=== PATIENT | male | born 1990 | race Caucasian/White ===

== ENCOUNTER 2021-01-15 09:15 | Emergency (ER) | payer OTHER ==
[~2021-01-15] VITALS: Ht 177.8 cm; Wt 113.4 kg
[2021-01-15] MEDS ORDERED: MULTI-VITAMIN1 EAC2 PO (09:35)
[2021-01-15] MEDS ORDERED: FOLIKA-NC TABL1 EACH PO (09:36)
[2021-01-15] MEDS ORDERED: AMOCLA875 PO (10:05)
[2021-01-15] MEDS ORDERED: Norco 5-325 Ta1 EACH PO (10:05)
== END 2021-01-15 10:17 | disposition home or self-care (01) ==
LOC: ER 09:15
DX: L05.91 Pilonidal cyst without abscess (principal); Z88.5 Allergy status to narcotic agent; Z79.899 Other long term (current) drug therapy
CPT/HCPCS: 10080; 99283-25; A9270

== ENCOUNTER 2021-01-17 10:00 | Emergency (ER) | payer OTHER ==
[~2021-01-17] VITALS: Ht 177.8 cm; Wt 113.4 kg
[~2021-01-17 10:00] MED LIST: AMOCLA875 PO; FOLIKA-NC TABL1 EACH PO; MULTI-VITAMIN1 EAC2 PO; Norco 5-325 Ta1 EACH PO
== END 2021-01-17 11:05 | disposition home or self-care (01) ==
LOC: ER 10:00
DX: L05.91 Pilonidal cyst without abscess (principal); Z88.5 Allergy status to narcotic agent; Z79.899 Other long term (current) drug therapy
CPT/HCPCS: 99282

== ENCOUNTER 2021-02-21 04:22 | Emergency (ER) | payer OTHER ==
[~2021-02-21] VITALS: Ht 177.8 cm; Wt 108.9 kg
[2021-02-21] MEDS ORDERED: ALBU90OI INH (06:56)
[2021-02-21] MEDS ORDERED: PRED20 PO (06:56)
[2021-02-21] MEDS ORDERED: GUAI600T33 PO (06:56)
== END 2021-02-21 07:05 | disposition home or self-care (01) ==
LOC: ER 04:22
DX: J20.9 Acute bronchitis, unspecified (principal); J68.0 Bronchitis and pneumonitis due to chemicals, gases, fumes and vapors; Z88.5 Allergy status to narcotic agent
CPT/HCPCS: 71046; 99283-25; J7512

== ENCOUNTER 2021-08-08 23:49 | Emergency (ER) | payer OTHER ==
[~2021-08-08] VITALS: Ht 175.3 cm; Wt 136.1 kg
[~2021-08-08 23:49] MED LIST changes: +ALBU90OI INH; +GUAI600T33 PO; +PRED20 PO
[2021-08-09] MEDS ORDERED: Cleocin HCl150 MG PO (01:35)
== END 2021-08-09 02:10 | disposition home or self-care (01) ==
LOC: ER 23:49
DX: L05.01 Pilonidal cyst with abscess (principal)
CPT/HCPCS: A9270

== ENCOUNTER → 2023-04-25 | Outpatient (CLI) | payer BC ==
[~2023-04-25] MED LIST changes: +Cleocin HCl150 MG PO
[2023-04-25 10:47] LABS: BASOPHILS PERCENT AUTO 1 % (0-2); EOSINOPHILS ABSOLUTE AUTO 0.67 K/mm3 (0.00-0.68); EOSINOPHILS PERCENT AUTO 7 % (0-6); Hematocrit 45.5 % (37.0-53.0); Hemoglobin 15.7 g/dL (13.5-17.5); IMMATURE GRAN ABSOLUTE AUTO 0.03 K/mm3 (0.00-0.10); IMMATURE GRAN PERCENT AUTO 0 % (0-1); LYMPHOCYTES ABSOLUTE AUTO 3.61 K/mm3 (0.84-5.20); LYMPHOCYTES PERCENT AUTO 36 % (21-46); MONOCYTES ABSOLUTE AUTO 0.68 K/mm3 (0.16-1.47); MONOCYTES PERCENT AUTO 7 % (4-13); Mean Corpuscular HGB 33.3 pg (26.0-34.0); Mean Corpuscular HGB Conc 34.5 g/dL (31.5-36.5); Mean Corpuscular Volume 96 fL (80-100); Mean Platelet Volume 9.5 fL (9.1-12.4); NEUTROPHILS ABSOLUTE AUTO 4.83 K/mm3 (1.96-9.15); NEUTROPHILS PERCENT AUTO 49 % (41-73); Platelet Count 244 K/mm3 (150-400); RDW Coefficient Variation 12.5 % (11.7-14.2); RDW Standard Deviation 44.5 fL (35.1-46.3); Red Blood Cell Count 4.72 M/mm3 (4.30-5.90); White Blood Cell Count 9.92 K/mm3 (4.00-11.30)
[2023-04-25 10:59] LABS: Albumin, Blood 3.8 g/dL (3.4-5.0); Albumin/Globulin Ratio 1.1 (0.8-1.8); Bilirubin, Total 0.6 mg/dL (0.1-1.0); Bun/Creatinine Ratio 18.2 (12.0-20.0); Calcium, Blood 8.9 mg/dL (8.5-10.1); Creatinine, Blood 0.88 mg/dL (0.60-1.20); Globulin, Blood 3.5 g/dL (2.2-4.0); Potassium, Blood 4.6 mmol/L (3.5-5.5); Total Protein, Blood 7.3 g/dL (6.4-8.2)
== END ==
LOC: LAB 10:43 → LAB SHORT 10:43
PROVIDERS: Physician Assistant
DX: R10.13 Epigastric pain (principal)
CPT/HCPCS: 80053; 83690; 85025